=== PATIENT | male | born 2000 | race Caucasian/White ===

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

== ENCOUNTER 2021-08-14 12:28 | Emergency (ER) | payer OTHER ==
[2021-08-14] MEDS ORDERED: Ibuprofen 400 MG TAB ONE (13:34)
== END 2021-08-14 13:35 | disposition home or self-care (01) ==
LOC: MADERS 12:28
DX: S50.01XA Contusion of right elbow, initial encounter (principal); W22.8XXA Striking against or struck by other objects, initial encounter

== ENCOUNTER 2022-03-08 09:06 | Emergency (ER) | payer OTHER ==
[2022-03-08] MEDS ORDERED: Ibuprofen 800 MG TAB ONE (10:53)
== END 2022-03-08 11:00 | disposition home or self-care (01) ==
LOC: MADERS 09:06
DX: S93.401A Sprain of unspecified ligament of right ankle, initial encounter (principal); S90.31XA Contusion of right foot, initial encounter; W01.0XXA Fall on same level from slipping, tripping and stumbling without subsequent striking against object, initial encounter